=== PATIENT | female | born 1975 | race Caucasian/White ===

== ENCOUNTER 2020-09-12 14:15 | Emergency (ER) | payer OTHER ==
[~2020-09-12 14:15] MED LIST: Iopamidol-370 76% 500 ML 1 ML ONE
[2020-09-12] MEDS ORDERED: HYDROcodone/Acetaminophen 5/325 mg Tablet ONE (15:36)
[2020-09-12] MEDS ORDERED: Boostrix 0.5 ML (Tdap) VIAL ONE (17:19)
== END 2020-09-12 17:17 | disposition home or self-care (01) ==
LOC: ERS 14:15
DX: S80.02XA Contusion of left knee, initial encounter (principal); S80.01XA Contusion of right knee, initial encounter; S40.012A Contusion of left shoulder, initial encounter; S10.93XA Contusion of unspecified part of neck, initial encounter; S50.02XA Contusion of left elbow, initial encounter; S00.03XA Contusion of scalp, initial encounter; S00.83XA Contusion of other part of head, initial encounter; E11.9 Type 2 diabetes mellitus without complications; F17.210 Nicotine dependence, cigarettes, uncomplicated; Y04.8XXA Assault by other bodily force, initial encounter
CPT/HCPCS: 70450; 70498; 71045; 90471; 90715; Q9967